=== PATIENT | female | born 1995 | race African-American/Black ===

== ENCOUNTER 2017-01-03 05:09 | Emergency (ER) | payer MEDICAID, OTHER ==
[~2017-01-03] VITALS: Ht 182.9 cm; Wt 124.0 kg
[2017-01-03] MEDS ORDERED: ONDANSETRON 2MG/ML, 2ML ONE (05:56)
[2017-01-03] MEDS ORDERED: ONDANSETRON 2MG/ML, 2ML IVPush ONE (06:00)
[2017-01-03] MEDS ORDERED: SODIUM CHLORIDE 0.9% 1,000ML IVBOLUS ONE (06:00)
[2017-01-03 06:14] LABS: ASPARTATE AMINO TRANSFERASE 12 U/L (15-37); BLOOD UREA NITROGEN 8 mg/dL (7-18)
[2017-01-03 06:30] LABS: DIFF TOTAL CELLS COUNTED 100 CELL DIFF
[2017-01-03 06:33] LABS: VERIFY COUNTS? YES
[2017-01-03] MEDS ORDERED: HYDROmorphone 1 MG/ML, 1ML ONE (06:41)
[2017-01-03 07:19] VITALS: BP 128/63
[2017-01-03 07:19] LABS: PATH.CAST-FLAG NOT PRESENT; SPERM-FLAG NOT PRESENT; SRC-FLAG NOT PRESENT; XTAL-FLAG NOT PRESENT; YLC-FLAG NOT PRESENT
[2017-01-03] MEDS ORDERED: HYDROmorphone 1 MG/ML, 1ML IVPush PRN (07:30)
== END 2017-01-03 07:22 | disposition home or self-care (01) ==
LOC: ED 06:11
DX: K80.20 Calculus of gallbladder without cholecystitis without obstruction (principal)
CPT/HCPCS: 36415; 76700; 80053; 81001; 83690; 84703; 85025; 87086; 96361; 96374; 96375; 99285; J1170; J2405; J7030

== ENCOUNTER 2017-03-02 03:22 | Emergency (ER) | payer MEDICAID ==
[~2017-03-02] VITALS: Ht 177.8 cm; Wt 123.2 kg
[2017-03-02] MEDS ORDERED: DICYCLOMINE 10 MG/ML, 2ML IM ONE (04:00)
[2017-03-02] MEDS ORDERED: PROMETHAZINE 25 MG/ML, 1ML IM ONE (04:00)
[2017-03-02] MEDS ORDERED: PROMETHAZINE 25 MG/ML, 1ML ONE (04:04)
[2017-03-02 04:17] LABS: PATH.CAST-FLAG NOT PRESENT; SPERM-FLAG NOT PRESENT; SRC-FLAG NOT PRESENT; XTAL-FLAG NOT PRESENT; YLC-FLAG NOT PRESENT
[2017-03-02 04:41] LABS: ASPARTATE AMINO TRANSFERASE 13 U/L (15-37); BLOOD UREA NITROGEN 7 mg/dL (7-18)
[2017-03-02 05:38] VITALS: BP 116/71
== END 2017-03-02 05:40 | disposition home or self-care (01) ==
LOC: ED 04:02
DX: K59.00 Constipation, unspecified (principal)
CPT/HCPCS: 36415; 74022; 80053; 81001; 83690; 84703; 85025; 87086; 96372; 99285; J0500; J2550

== ENCOUNTER 2017-04-16 19:17 | Emergency (ER) | payer MEDICAID ==
[~2017-04-16] VITALS: Ht 177.8 cm; Wt 120.9 kg
[~2017-04-16 19:17] MED LIST: ONDA4TAB10 PO
[2017-04-16 19:19] VITALS: BP 125/89
[2017-04-16] MEDS ORDERED: LIDOCAINE 1%, 20ML SQ ONE (19:30)
[2017-04-16] MEDS ORDERED: LIDOCAINE 1%, 20ML ONE (19:32)
== END 2017-04-16 20:30 | disposition home or self-care (01) ==
LOC: ED 20:24
DX: N61.1 Abscess of the breast and nipple (principal)
CPT/HCPCS: 10060; 99284

== ENCOUNTER 2017-06-25 22:06 | Emergency (ER) | payer MEDICAID ==
[~2017-06-25] VITALS: Ht 177.8 cm; Wt 120.0 kg
[2017-06-25 23:08] LABS: BLOOD UREA NITROGEN 8 mg/dL (7-18)
[2017-06-25] MEDS ORDERED: KETOROLAC 30 MG/1 ML ONE (23:50)
[2017-06-26] MEDS ORDERED: KETOROLAC 30 MG/1 ML IM ONE
[2017-06-26 01:37] VITALS: BP 125/74
== END 2017-06-26 01:39 | disposition home or self-care (01) ==
LOC: ED 06-26 00:42
DX: R07.89 Other chest pain (principal)
CPT/HCPCS: 36415; 71020; 80048; 84703; 85379; 93005; 96372; 99285; J1885

== ENCOUNTER 2017-07-02 02:24 | Emergency (ER) | payer MEDICAID ==
[~2017-07-02] VITALS: Ht 177.8 cm; Wt 122.6 kg
[2017-07-02 03:33] VITALS: BP 135/71
== END 2017-07-02 03:35 | disposition home or self-care (01) ==
LOC: ED 03:29
DX: K02.9 Dental caries, unspecified (principal); K04.7 Periapical abscess without sinus
CPT/HCPCS: 99283

== ENCOUNTER 2018-04-24 02:49 | Emergency (ER) | payer MEDICAID ==
[~2018-04-24] VITALS: Ht 177.8 cm; Wt 125.9 kg
[2018-04-24] MEDS ORDERED: SODIUM CHLORIDE 0.9% 1,000 ML IV ONE (03:03)
[2018-04-24] MEDS ORDERED: ONDANSETRON 2MG/ML, 2ML IVPush ONE (03:30)
[2018-04-24] MEDS ORDERED: MORPHINE SULFATE 4 MG/ML, 1ML IVPush PRN (03:30)
[2018-04-24 03:35] LABS: BASOPHILS # (AUTO) 0.06 x10^3/uL (0-0.1); BASOPHILS % (AUTO) 1 % (0-1); EOSINOPHILS # (AUTO) 0.26 x10^3/uL (0-0.4); EOSINOPHILS % (AUTO) 3 % (1-7); LYMPHOCYTES # (AUTO) 3.31 x10^3/uL (1-3.4); LYMPHOCYTES % (AUTO) 35 % (22-44); MD NO; MEAN CORPUSCULAR HEMOGLOBIN 27.5 pg (27.0-34.8); MEAN CORPUSCULAR HGB CONC 33.3 g/dL (32.4-35.8); MEAN CORPUSCULAR VOLUME 82.7 fL (80-100); MEAN PLATELET VOLUME 8.9 fL (7.4-10.4); MONOCYTES # (AUTO) 0.72 x10^3/uL (0.2-0.8); MONOCYTES % (AUTO) 8 % (2-9); NEUTROPHILS % (AUTO) 54 % (42-75); PLATELET COUNT 273 x10^3/uL (130-400); RED BLOOD COUNT 4.27 x10^6/uL (3.82-5.3); RED CELL DISTRIBUTION WIDTH 13.5 % (9.6-15.2)
[2018-04-24 03:38] LABS: ALANINE AMINOTRANSFERASE 24 U/L (12-78); ALBUMIN 3.2 g/dL (3.4-5.0); ANION GAP 9 mmol/L (5-15); CALCIUM 8.2 mg/dL (8.5-10.1); CHLORIDE 107 mmol/L (98-107); CREATININE 0.75 mg/dL (0.55-1.02)
[2018-04-24 03:42] LABS: ALKALINE PHOSPHATASE 67 U/L (45-117); BILIRUBIN,TOTAL 0.2 mg/dL (0.2-1.0); TOTAL PROTEIN 7.3 g/dL (6.4-8.2)
[2018-04-24] MEDS ORDERED: MORPHINE SULFATE 4 MG/ML, 1ML ONE (03:51)
[2018-04-24 04:23] VITALS: BP 123/74
== END 2018-04-24 04:32 | disposition home or self-care (01) ==
LOC: ED 03:32
DX: K80.70 Calculus of gallbladder and bile duct without cholecystitis without obstruction (principal)
CPT/HCPCS: 36415; 76700; 80053; 83690; 84703; 85025; 96374

== ENCOUNTER 2018-04-26 20:07 | Observation (INO) | payer MEDICAID ==
[~2018-04-26] VITALS: Ht 177.8 cm; Wt 120.4 kg
[2018-04-26 21:00] LABS: ALANINE AMINOTRANSFERASE 556 U/L (12-78); ALBUMIN 3.7 g/dL (3.4-5.0); ANION GAP 8 mmol/L (5-15); CALCIUM 8.8 mg/dL (8.5-10.1); CHLORIDE 103 mmol/L (98-107); CREATININE 0.83 mg/dL (0.55-1.02)
[2018-04-26 21:03] LABS: ALKALINE PHOSPHATASE 248 U/L (45-117); BILIRUBIN,TOTAL 1.2 mg/dL (0.2-1.0); TOTAL PROTEIN 8.8 g/dL (6.4-8.2)
[2018-04-26 21:05] LABS: MEAN CORPUSCULAR HEMOGLOBIN 27.6 pg (27.0-34.8); MEAN CORPUSCULAR HGB CONC 33.5 g/dL (32.4-35.8); MEAN CORPUSCULAR VOLUME 82.2 fL (80-100); MEAN PLATELET VOLUME 8.6 fL (7.4-10.4); PLATELET COUNT 292 x10^3/uL (130-400); RED BLOOD COUNT 4.83 x10^6/uL (3.82-5.3); RED CELL DISTRIBUTION WIDTH 13.6 % (9.6-15.2)
[2018-04-26 21:26] LABS: HCG UR SG 1.021 (1.003-1.030)
[2018-04-26] MEDS ORDERED: ONDANSETRON 2MG/ML, 2ML ONE (21:26)
[2018-04-26] MEDS ORDERED: MORPHINE SULFATE 4 MG/ML, 1ML ONE (21:26)
[2018-04-26] MEDS ORDERED: PIPERACILLIN/TAZO/PMX 3.375GM 50 ML ONE (21:26)
[2018-04-26] MEDS ORDERED: PIPERACILLIN/TAZO/PMX 3.375GM 50 ML IV ONE (21:30)
[2018-04-26] MEDS ORDERED: ONDANSETRON 2MG/ML, 2ML IVPush ONE (21:30)
[2018-04-26] MEDS ORDERED: MORPHINE SULFATE 4 MG/ML, 1ML IVPush PRN (21:30)
[2018-04-26] MEDS ORDERED: SODIUM CHLORIDE FLUSH 10ML SYR IVF ONE (21:30)
[2018-04-26] MEDS ORDERED: SODIUM CHLORIDE 0.9% 1,000ML IVBOLUS ONE (21:30)
[2018-04-26 21:36] LABS: MICROSCOPIC INDICATED
[2018-04-26 21:44] LABS: BASOPHILS # (AUTO) 0.04 x10^3/uL (0-0.1); BASOPHILS % (AUTO) 1 % (0-1); EOSINOPHILS # (AUTO) 0.06 x10^3/uL (0-0.4); EOSINOPHILS % (AUTO) 1 % (1-7); LYMPHOCYTES # (AUTO) 0.94 x10^3/uL (1-3.4); LYMPHOCYTES % (AUTO) 18 % (22-44); MD SCAN; MONOCYTES # (AUTO) 0.59 x10^3/uL (0.2-0.8); MONOCYTES % (AUTO) 11 % (2-9); NEUTROPHILS # (AUTO) 3.52 x10^3/uL (1.8-6.8); NEUTROPHILS % (AUTO) 68 % (42-75)
[2018-04-26 21:46] LABS: CULTURE INDICATED? NO
[2018-04-26] MEDS ORDERED: hydrALAzine 20 MG/ML, 1ML IVPush PRN (23:00)
[2018-04-26] MEDS ORDERED: morphine SULFATE 10 MG/ML, 1ML IVPush PRN (23:00)
[2018-04-26] MEDS ORDERED: ONDANSETRON 2MG/ML, 2ML IVPush PRN (23:00)
[2018-04-26 23:38] VITALS: BP 123/76
[2018-04-26 23:50] LABS: HEMOGLOBIN A1C 7.7 % (4.2-6.3)
[2018-04-26] MEDS: SODIUM CHLORIDE 0.9% 1,000 ML IV SCH (23:57)
[2018-04-27] MEDS: INSULIN LISPRO 100 UNITS/ML, PEN SQ-INSULIN SCH ×5 (00:08→20:23)
[2018-04-27 02:13] VITALS: BP 122/74
[2018-04-27] MEDS: PIPERACILLIN/TAZO/PMX 3.375GM 50 ML IV SCH ×3 (05:47→20:24)
[2018-04-27] MEDS: SODIUM CHLORIDE 0.9% 1,000 ML IV SCH ×2 (07:43→17:19)
[2018-04-27 07:49] VITALS: BP 128/80
[2018-04-27 10:45] LABS: ALANINE AMINOTRANSFERASE 610 U/L (12-78); ALBUMIN 3.3 g/dL (3.4-5.0); ANION GAP 9 mmol/L (5-15); CALCIUM 8.6 mg/dL (8.5-10.1); CHLORIDE 106 mmol/L (98-107); CREATININE 0.78 mg/dL (0.55-1.02)
[2018-04-27 10:47] LABS: ALKALINE PHOSPHATASE 267 U/L (45-117); BILIRUBIN,TOTAL 2.1 mg/dL (0.2-1.0); TOTAL PROTEIN 7.6 g/dL (6.4-8.2)
[2018-04-27 13:44] VITALS: BP 109/72
[2018-04-27 17:50] LABS: AMPHETAMINE SCREEN, URINE Negative (Negative); BARBITURATE SCREEN, URINE Negative (Negative); BENZODIAZEPINE SCREEN, URINE Negative (Negative); CANNABINOID SCREEN, URINE Negative (Negative); COCAINE SCREEN, URINE Negative (Negative); METHADONE SCREEN, URINE Negative (Negative); OPIATE SCREEN, URINE Positive (Negative)
[2018-04-27 19:43] VITALS: BP 128/81
[2018-04-28 01:13] VITALS: BP 106/72
[2018-04-28] MEDS: SODIUM CHLORIDE 0.9% 1,000 ML IV SCH (04:15)
[2018-04-28] MEDS: PIPERACILLIN/TAZO/PMX 3.375GM 50 ML IV SCH (06:21)
[2018-04-28] MEDS: INSULIN LISPRO 100 UNITS/ML, PEN SQ-INSULIN SCH ×2 (07:00→11:09)
[2018-04-28 07:13] LABS: ALANINE AMINOTRANSFERASE 447 U/L (12-78); ALBUMIN 3.1 g/dL (3.4-5.0); ANION GAP 9 mmol/L (5-15); CALCIUM 8.1 mg/dL (8.5-10.1); CHLORIDE 109 mmol/L (98-107); CREATININE 0.75 mg/dL (0.55-1.02)
[2018-04-28 07:15] LABS: ALKALINE PHOSPHATASE 235 U/L (45-117); BILIRUBIN,TOTAL 0.9 mg/dL (0.2-1.0); TOTAL PROTEIN 7.4 g/dL (6.4-8.2)
[2018-04-28 08:21] VITALS: BP 121/80
== END 2018-04-28 12:15 | disposition home or self-care (01) ==
LOC: ED 21:35 → EDIP 22:42 → INTOOBSV 22:42 → 4NOR 23:29 → DCLOUNGE 04-28 12:05
PROVIDERS: ADMIT Internal Medicine; ATTEND Internal Medicine
DX: K80.20 Calculus of gallbladder without cholecystitis without obstruction (principal); R74.0 Nonspecific elevation of levels of transaminase and lactic acid dehydrogenase [LDH]; R73.9 Hyperglycemia, unspecified; Z80.0 Family history of malignant neoplasm of digestive organs; E66.01 Morbid (severe) obesity due to excess calories
CPT/HCPCS: 36415; 74181; 76700; 80053; 80074; 80307; 81001; 81025; 82962; 83036; 83690; 85025; 93005; 96365; 96366; 96372; 96375; 96376; 99285; G0378; J1815; J2405; J2543; J7030; J2270

== ENCOUNTER 2019-08-12 03:20 | Emergency (ER) | payer MEDICAID ==
[~2019-08-12] VITALS: Ht 182.9 cm; Wt 119.9 kg
[2019-08-12] MEDS ORDERED: IBUPROFEN 600 MG TABLET ONE (04:13)
[2019-08-12] MEDS ORDERED: ONDANSETRON ODT 4 MG ONE (04:13)
[2019-08-12] MEDS ORDERED: ACETAMINOPHEN 325 MG TABLET ONE (04:16)
--- NOTE | 2019-08-12 04:18 | NUR ---
pt medicated per mar. pt to xray
[2019-08-12 04:30] LABS: MEAN CORPUSCULAR HEMOGLOBIN 27.4 pg (27.0-34.8); MEAN CORPUSCULAR HGB CONC 32.8 g/dL (32.4-35.8); MEAN CORPUSCULAR VOLUME 83.7 fL (80-100); MEAN PLATELET VOLUME 8.9 fL (7.4-10.4); PLATELET COUNT 264 x10^3/uL (130-400); RED BLOOD COUNT 4.56 x10^6/uL (3.82-5.3); RED CELL DISTRIBUTION WIDTH 13.3 % (9.6-15.2)
[2019-08-12] MEDS ORDERED: ONDANSETRON ODT 4 MG PO ONE (04:30)
[2019-08-12] MEDS ORDERED: ACETAMINOPHEN 325 MG TABLET PO ONE (04:30)
[2019-08-12] MEDS ORDERED: IBUPROFEN 600 MG TABLET PO ONE (04:30)
[2019-08-12 04:36] LABS: ALANINE AMINOTRANSFERASE 26 U/L (12-78); ALBUMIN 3.2 g/dL (3.4-5.0); ANION GAP 8 mmol/L (5-15); CALCIUM 8.3 mg/dL (8.5-10.1); CHLORIDE 107 mmol/L (98-107); CREATININE 0.82 mg/dL (0.55-1.02)
[2019-08-12 04:39] LABS: RAPID INFLUENZA A Negative (Negative); RAPID INFLUENZA B Negative (Negative)
--- NOTE | 2019-08-12 04:39 | NUR ---
pt up to rr with steady gait, provided pt urine cup
[2019-08-12 04:40] LABS: ALKALINE PHOSPHATASE 62 U/L (45-117); BILIRUBIN,TOTAL 0.4 mg/dL (0.2-1.0); TOTAL PROTEIN 7.1 g/dL (6.4-8.2)
--- NOTE | 2019-08-12 04:52 | NUR ---
pt resting on [facility] [place], monitors in place, siderail sup x2, call light within reach. awaiting lab and xray result
[2019-08-12 05:10] LABS: BASOPHILS # (AUTO) 0.03 x10^3/uL (0-0.1); BASOPHILS % (AUTO) 0 % (0-1); EOSINOPHILS # (AUTO) 0.12 x10^3/uL (0-0.4); EOSINOPHILS % (AUTO) 1 % (1-7); LYMPHOCYTES # (AUTO) 1.52 x10^3/uL (1-3.4); LYMPHOCYTES % (AUTO) 10 % (22-44); MD SCAN; MONOCYTES % (AUTO) 5 % (2-9); NEUTROPHILS % (AUTO) 84 % (42-75)
[2019-08-12 05:18] LABS: MICROSCOPIC NOT IND
[2019-08-12 05:22] LABS: CULTURE INDICATED? NO
--- NOTE | 2019-08-12 05:47 | NUR ---
RADIOLOGY CALLED REGARDING XRAY RESULT, INFORMED XRAY BEING READ RIGHT NOW
[2019-08-12 06:21] VITALS: BP 120/69
== END 2019-08-12 06:25 | disposition home or self-care (01) ==
LOC: ED 06:11
DX: J02.8 Acute pharyngitis due to other specified organisms (principal); B34.9 Viral infection, unspecified; R73.09 Other abnormal glucose
CPT/HCPCS: 36415; 71046; 80053; 81003; 83605; 84145; 84703; 85025; 87081; 87400; 87880; 93005; 99284; Q0162

== ENCOUNTER 2019-08-12 18:47 | Emergency (ER) | payer MEDICAID ==
[~2019-08-12] VITALS: Ht 182.9 cm; Wt 119.2 kg
--- NOTE | 2019-08-12 19:39 | NUR ---
PT HAS CO OF ABDOMINAL PAIN, WAS SEEN THIS AM FOR SAME COMPLAINT. STATES SHE HAS FLU SYMPTOMS. AMBULATED TO BATHROOM FOR UA
--- NOTE | 2019-08-12 20:28 | NUR ---
IV PLACED FOR CT
[2019-08-12] MEDS ORDERED: OMNIPAQUE 350 MG/ML, 100ML BOTTLE ONE (20:43)
--- NOTE | 2019-08-12 21:01 | NUR ---
REPORT TO GERTRUDIS
[2019-08-12] MEDS ORDERED: IBUPROFEN 600 MG TABLET ONE (21:29)
[2019-08-12] MEDS ORDERED: IBUPROFEN 200 MG TABLET PO ONE (21:30)
[2019-08-12 21:37] VITALS: BP 126/65
--- NOTE | 2019-08-12 21:51 | NUR ---
Patient medicated per sep. Discharge instructions given. All questions and concerns addressed. Patient ambulatory with a steady gait. Belongings with patinet.
== END 2019-08-12 21:42 | disposition home or self-care (01) ==
LOC: ED 19:44
DX: R10.31 Right lower quadrant pain (principal)
CPT/HCPCS: 74177; 99284; Q9967

== ENCOUNTER 2019-08-13 21:29 | Emergency (ER) | payer MEDICAID ==
[~2019-08-13] VITALS: Ht 182.9 cm; Wt 117.8 kg
[2019-08-13 21:32] VITALS: BP 144/84
--- NOTE | 2019-08-13 22:07 | NUR ---
PT C/O RIGHT SIDE MARTINEZ STARTING AT ABOUT 1400. C/O CONGESTION AND RIGHT EAR PAIN. TOOK IBU 600 W/O RELIEF. PT C/O NAUSEA. CONNECTED TO MONITORING. CALL LIGHT IN REACH. FAMILY AT BEDSIDE.
[2019-08-13] MEDS ORDERED: DIPHENHYDRAMINE 50 MG/ML, 1ML ONE (22:23)
[2019-08-13] MEDS ORDERED: METOCLOPRAMIDE 5 MG/ML, 2ML ONE (22:23)
[2019-08-13] MEDS ORDERED: KETOROLAC 30 MG/1 ML ONE (22:23)
[2019-08-13] MEDS ORDERED: DIPHENHYDRAMINE 50 MG/ML, 1ML IVPush ONE (22:30)
[2019-08-13] MEDS ORDERED: SODIUM CHLORIDE FLUSH 10ML SYR IVF ONE (22:30)
[2019-08-13] MEDS ORDERED: METOCLOPRAMIDE 5 MG/ML, 2ML IVPush ONE (22:30)
[2019-08-13] MEDS ORDERED: SODIUM CHLORIDE 0.9% 1,000ML IVBOLUS ONE (22:30)
[2019-08-13] MEDS ORDERED: KETOROLAC 30 MG/1 ML IVPush ONE (22:30)
--- NOTE | 2019-08-13 22:30 | NUR ---
IV START. MEDS ADMIN PER SEP. IVF RUNNING.
--- NOTE | 2019-08-13 22:50 | NUR ---
IVF COMPLETE. PT STATES SHE FEELS A LITTLE BETTER. CHART UP FOR RECHECK.
== END 2019-08-13 23:43 | disposition home or self-care (01) ==
LOC: ED 22:46
DX: G44.209 Tension-type headache, unspecified, not intractable (principal); H53.149 Visual discomfort, unspecified; R11.0 Nausea; R05 Cough; Z90.49 Acquired absence of other specified parts of digestive tract
CPT/HCPCS: 96374; 96375; 99283; J1885; J1200; J2765; J7030

== ENCOUNTER 2019-09-30 16:17 | Emergency (ER) | payer MEDICAID ==
[~2019-09-30] VITALS: Ht 180.3 cm; Wt 115.9 kg
[2019-09-30] MEDS ORDERED: ONDANSETRON ODT 4 MG PO ONE (17:00)
[2019-09-30] MEDS ORDERED: DICYCLOMINE 20 MG TABLET PO ONE (17:00)
--- NOTE | 2019-09-30 17:01 | NUR ---
PT TO ROOM 30 PER PEDIS. PT STATES "2 HOURS AGO, I STARTED HAVING ABDOMINAL PAIN, GOT NAUSEATED AND I THINK I JUST PASSED OUT" PT IS A/O X3. PT IN GOWN, BLANKET OFFERED, CALL LIGHT IN REACH WITH INSTRUCTIONS. MD IN TO ASSESS PATIENT. ORDERS PLACED.
[2019-09-30] MEDS ORDERED: DICYCLOMINE 20 MG TABLET ONE (17:08)
[2019-09-30] MEDS ORDERED: ONDANSETRON ODT 4 MG ONE (17:08)
[2019-09-30 17:26] LABS: BASOPHILS # (AUTO) 0.01 x10^3/uL (0-0.1); BASOPHILS % (AUTO) 0 % (0-1); EOSINOPHILS # (AUTO) 0.29 x10^3/uL (0-0.4); EOSINOPHILS % (AUTO) 2 % (1-7); LYMPHOCYTES # (AUTO) 1.87 x10^3/uL (1-3.4); LYMPHOCYTES % (AUTO) 14 % (22-44); MD NO; MEAN CORPUSCULAR HEMOGLOBIN 27.6 pg (27.0-34.8); MEAN CORPUSCULAR HGB CONC 33.2 g/dL (32.4-35.8); MEAN CORPUSCULAR VOLUME 83.1 fL (80-100); MEAN PLATELET VOLUME 8.8 fL (7.4-10.4); MONOCYTES # (AUTO) 0.46 x10^3/uL (0.2-0.8); MONOCYTES % (AUTO) 3 % (2-9); NEUTROPHILS # (AUTO) 11.02 x10^3/uL (1.8-6.8); NEUTROPHILS % (AUTO) 81 % (42-75); PLATELET COUNT 283 x10^3/uL (130-400); RED BLOOD COUNT 4.79 x10^6/uL (3.82-5.3); RED CELL DISTRIBUTION WIDTH 13.1 % (9.6-15.2)
[2019-09-30 17:38] LABS: ALBUMIN 3.8 g/dL (3.4-5.0); ANION GAP 8 mmol/L (5-15); CALCIUM 8.9 mg/dL (8.5-10.1); CHLORIDE 105 mmol/L (98-107)
[2019-09-30 17:44] LABS: ALANINE AMINOTRANSFERASE 28 U/L (12-78); ALKALINE PHOSPHATASE 78 U/L (45-117); BILIRUBIN,TOTAL 0.4 mg/dL (0.2-1.0); CREATININE 0.76 mg/dL (0.55-1.02); TOTAL PROTEIN 8.3 g/dL (6.4-8.2)
[2019-09-30] MEDS ORDERED: PROMETHAZINE 25 MG/ML, 1ML IM ONE (18:30)
--- NOTE | 2019-09-30 18:30 | NUR ---
HAS SEEN PATIENT AND MEDICATIONS HAVE BEEN ADMINISTERED. PT UP WALKING TO BR WITH STRONG STEADY GAIT. DAUGHTER REMAINS AT BEDSIDE.
[2019-09-30] MEDS ORDERED: PROMETHAZINE 25 MG/ML, 1ML ONE (18:45)
--- NOTE | 2019-09-30 19:09 | NUR ---
BREAK RN: PT MEDICATED PER ORDER. PT EXPRESSES NO OTHER WANTS OR NEEDS AT THIS TIME.
--- NOTE | 2019-09-30 19:27 | NUR ---
PT STATES MILD RELIEF OF NAUSEA. VSS. PT UP FOR RECHECK. IN ROOM NOW
--- NOTE | 2019-09-30 20:18 | NUR ---
DISCHARGE INSTRUCTIONS GIVEN TO PATIENT WITH 2 PRESCRIPTIONS. PT EDUCATED ON BOTH MEDICATIONS, WITH USE AND SIDE EFFECTS. PT TEACHES BACK ON USE OF MEDICATIONS. PT STILL FEELS DIZZY, SO INSTRUCTED ON HOW TO MOVE TO HELP REDUCE THE DIZZY FEELING. PT AMBULATED OUT OF ED WITHOUT ANY DIFF.
[2019-09-30 20:20] VITALS: BP 117/63
== END 2019-09-30 20:22 | disposition home or self-care (01) ==
LOC: ED 20:15
DX: R10.84 Generalized abdominal pain (principal); R11.2 Nausea with vomiting, unspecified; R19.7 Diarrhea, unspecified; Z90.49 Acquired absence of other specified parts of digestive tract
CPT/HCPCS: 36415; 80053; 83690; 84703; 85025; 96372; 99283; J2550; Q0162

== ENCOUNTER 2020-03-24 19:18 | Emergency (ER) | payer MEDICAID ==
[~2020-03-24] VITALS: Ht 182.9 cm; Wt 117.7 kg
[2020-03-24 19:20] VITALS: BP 130/75
[2020-03-24] MEDS ORDERED: LIDOCAINE-MPF 1%, 5ML ONE ×3 (20:27→20:31)
[2020-03-24] MEDS ORDERED: LIDOCAINE-MPF 1%, 5ML INFIL ONE (20:30)
[2020-03-24] MEDS ORDERED: SULFAMETH./TRIMETHOPRIM DS 800MG/160MG TABLET PO ONE (20:30)
[2020-03-24] MEDS ORDERED: CEPHALEXIN 500 MG CAPSULE PO ONE (20:30)
[2020-03-24] MEDS ORDERED: CEPHALEXIN 500 MG CAPSULE ONE (20:31)
[2020-03-24] MEDS ORDERED: SULFAMETH./TRIMETHOPRIM DS 800MG/160MG TABLET ONE (20:31)
[2020-03-24] MEDS ORDERED: LIDOCAINE 1%-EPI 1:100K, 20ML ONE (21:20)
== END 2020-03-24 22:00 | disposition home or self-care (01) ==
LOC: ED 21:10
DX: N61.1 Abscess of the breast and nipple (principal)
CPT/HCPCS: 10060; 76641; 99284

== ENCOUNTER 2020-11-22 20:13 | Emergency (ER) | payer MEDICAID ==
[~2020-11-22] VITALS: Ht 182.9 cm; Wt 109.0 kg
[2020-11-22] MEDS ORDERED: SODIUM CHLORIDE 0.9% 1,000ML IVBOLUS ONE (20:30)
--- NOTE | 2020-11-22 20:30 | NUR ---
PT BROUGHT BACK TO ROOM FROM TRIAGE. PT STATED THAT SHE WENT TO URGENT CARE YESTERDAY FOR SUSPECTED UTI AND THEY TOLD HER THAT SHE HAD GLUCOSE IN HER URINE. PT BOUGHT A GLUCOMETER AND IT READ 599. PT STATED THAT SHE DOES NOT HAVE A HISTORY OF DIABETES.
[2020-11-22 21:08] LABS: BASOPHILS % (AUTO) 1 % (0-1); EOSINOPHILS % (AUTO) 2 % (1-7); LYMPHOCYTES % (AUTO) 45 % (22-44); MEAN CORPUSCULAR HEMOGLOBIN 27.5 pg (27.0-34.8); MEAN CORPUSCULAR HGB CONC 33.7 g/dL (32.4-35.8); MEAN PLATELET VOLUME 9.2 fL (7.4-10.4); MONOCYTES % (AUTO) 7 % (2-9); NEUTROPHILS % (AUTO) 45 % (42-75); PLATELET COUNT 301 x10^3/uL (130-400); RED BLOOD COUNT 5.23 x10^6/uL (3.82-5.3); RED CELL DISTRIBUTION WIDTH 13.2 % (9.6-15.2)
[2020-11-22 21:10] LABS: MD NO
[2020-11-22 21:22] LABS: ALBUMIN 3.9 g/dL (3.4-5.0); ANION GAP 8 mmol/L (5-15); CALCIUM 9.1 mg/dL (8.5-10.1); CHLORIDE 101 mmol/L (98-107)
--- NOTE | 2020-11-22 21:27 | NUR ---
Report from VIKY Morel. First contact, IVF finished. Pt up ambulates to br provided urine/sent.
[2020-11-22 21:31] LABS: PH, VENOUS 7.394 pH (7.320-7.420)
[2020-11-22 21:44] LABS: ACETONE, SERUM Trace (Negative)
[2020-11-22 21:54] LABS: MICROSCOPIC AUTO
--- NOTE | 2020-11-22 22:21 | NUR ---
PA at bedside for recheck.
[2020-11-22 22:36] VITALS: BP 145/89
== END 2020-11-22 22:39 | disposition home or self-care (01) ==
LOC: ED 20:43
DX: E11.65 Type 2 diabetes mellitus with hyperglycemia (principal); N30.00 Acute cystitis without hematuria; R42 Dizziness and giddiness
CPT/HCPCS: 36415; 80048; 81001; 82010; 82040; 82803; 82962; 85025; 87086; 93005; 96360; 96361; 99284; J7030